=== PATIENT | male | born 1990 | race Caucasian/White ===

== ENCOUNTER 2022-07-30 08:57 | Emergency (ER) | payer OTHER, SELFPAY ==
--- NOTE | 2022-07-30 09:01 | ED.URI ---
HPI - URI/Sore Throat General Chief Complaint: Upper Respiratory Infection Stated Complaint: cold flu Time Seen by Provider: 07/30/22 09:01 Source: patient and RN notes reviewed History of Present Illness HPI Narrative: patient is a 32-year-old male who presents to urgent care with his spouse with complaints of flu-like symptoms of cough and fever, fatigue for the last 3 days. Patient has been taking ibuprofen, NyQuil and DayQuil. Patient has been eating without any nausea or vomiting. Patient states that he is diabetic and his blood sugar levels have been within normal limits. No other acute complaints. Other than extreme fatigue, no acute distress noted. Patient aware of the plan of care. Some parts of this dictation were generated by voice recognition software and may contain typographical and/or grammatical inaccuracies. Related Data Home Medications Medication Instructions Recorded Confirmed amlodipine 5 mg tablet 5 mg PO DAILY 07/30/22 07/30/22 dextroamphetamine-amphetamine ER 20 mg PO DAILY 07/30/22 07/30/22 20 mg 24hr capsule,extend release (Adderall XR) insulin glargine 100 unit/mL (3 25 unit subcut QHS 07/30/22 07/30/22 mL) subcutaneous pen (Lantus Solostar U-100 Insulin) semaglutide 0.25 mg or 0.5 mg (2 0.25 mg subcut WEEKLY 07/30/22 07/30/22 mg/1.5 mL) subcutaneous pen injector (Ozempic) Allergies Allergy/AdvReac Type Severity Reaction Status Date / Time Sulfa (Sulfonamide Allergy Mild Hives Verified 07/30/22 09:19 Antibiotics) Review of Systems Review of Systems: CONSTITUTIONAL: Reports of chills, sweats, fever EYES: Denies visual changes, redness, or discharge. ENT: reports rhinorrhea and postnasal drainage CARDIOVASCULAR: Denies chest pain, palpitations, or edema. RESPIRATORY: reports of cough without dyspnea GASTROINTESTINAL: Denies abdominal pain, nausea, vomiting, or diarrhea. GENITOURINARY: Denies dysuria or hematuria. SKIN: Denies rash or itching. MUSCULOSKELETAL: Denies back pain, joint pain. reports body aches NEUROLOGIC: Denies headache, numbness, or weakness. All other systems reviewed are negative, except as documented in HPI. PMFSH Comments At the time of my signature, I reviewed and agree with the nursing past medical, surgical, social, and family history. There is no relevant family history pertinent to the patient complaint. Exam Narrative: GENERAL: This is a well-nourished, well-developed patient, appears fatigued HEAD: normocephalic, atraumatic. EYES: PERRL. Sclera clear/white. Vision is grossly intact. EARS: External ears normal, auditory canals clear and without drainage, TMs normal without perforation. Hearing grossly intact. NOSE: External nose normal with no obvious nasal discharge, nares without redness, clear rhinorrhea. THROAT: Mucous membranes moist, Mild erythema to posterior pharynx with moderate postnasal drainage NECK: Neck supple, non-tender without lymphadenopathy CARDIOVASCULAR: Regular rate and rhythm without murmurs, gallops, or rubs. RESPIRATORY: Clear to auscultation. Breath sounds equal bilaterally. No wheezes, rales, or rhonchi. GASTROINTESTINAL: Abdomen soft, non-tender, nondistended. Bowel sounds are active. No hepato-splenomegaly, or palpable masses. No guarding. SKIN: pale. warm, intact with no suspicious lesions or rash, good texture and turgor. NEURO: awake, alert, and oriented to person, place and time. There were no obvious focal neurologic abnormalities. EXTREMITIES: No clubbing, cyanosis, or edema. Course Course Level of Care: Express Care Visit Vital Signs Vital signs: Vital Signs Temperature 97.5 F L 07/30/22 09:04 Pulse Rate 106 H 07/30/22 09:04 Respiratory Rate 20 07/30/22 09:04 Blood Pressure 81/50 L 07/30/22 09:04 Pulse Oximetry 97 07/30/22 09:04 Oxygen Delivery Room Air 07/30/22 09:04 Temperature 97.5 F L 07/30/22 09:04 Pulse Rate 106 H 07/30/22 09:04 Respiratory Rate 20 1
[2022-07-30 09:04] VITALS: BP 81/50; PULSE 106; RESP 20; TEMP 36.4; O2SAT 97
[2022-07-30 09:24] VITALS: BP 101/62
== END 2022-07-30 09:35 | disposition home or self-care (01) ==
PROVIDERS: Emergency Provider Nurse Practitioner Family; PCP Family Medicine
DX: R05.9 Cough, unspecified (principal); R50.9 Fever, unspecified; R53.83 Other fatigue; E11.9 Type 2 diabetes mellitus without complications; Z79.4 Long term (current) use of insulin
CPT/HCPCS: 99211; G0463

== ENCOUNTER 2022-08-21 13:10 | Emergency (ER) | payer BC, SELFPAY ==
--- NOTE | ~2022-08-21 | XR_ITS ---
EXAMINATION: XR chest 2V 08/21/2022 13:33 INDICATION: Cough and fever. Diabetes. PROCEDURE: 2 view chest COMPARISON: No prior studies for comparison. FINDINGS: The lungs are clear. The cardiomediastinal silhouette is within normal limits. There are no pleural effusions. There is no pneumothorax suspected. IMPRESSION: 1: NO ACUTE CARDIOPULMONARY DISEASE. Reviewed, dictated and finalized at location A. OMER SERVICE SALES ASSOCIATE
[2022-08-21 13:18] VITALS: BP 148/82; PULSE 120; RESP 20; TEMP 36.7; O2SAT 96
--- NOTE | 2022-08-21 13:38 | ED.GENADULT ---
HPI - General Adult General Chief complaint: Upper Respiratory Infection Stated complaint: cough,fever,drainage Source: patient Mode of arrival: ambulatory Limitations: no limitations History of Present Illness HPI narrative: Patient presents for evaluation of respiratory symptoms since Tuesday. He reports sinus congestion, productive cough of green sputum, exertional dyspnea, and sore throat. He believes he had a fever but did not check his temperature. He has had some episodes of vomiting that he attributes to the severity of his coughing episodes. No diarrhea. He was taking DayQuil and NyQuil for his symptoms. Today he switched to Mucinex and that seems to be working. His is here being evaluated for similar symptoms. He believes he had influenza in the middle of July 2022 but did not actually take a test. He had COVID back in 2018. He does not smoke. He is diabetic. He has a freestyle a states that his blood sugars run in the 120's at home. Related Data Home Medications Medication Instructions Recorded Confirmed amlodipine 5 mg tablet 5 mg PO DAILY 07/30/22 08/21/22 dextroamphetamine-amphetamine ER 20 mg PO DAILY 07/30/22 08/21/22 20 mg 24hr capsule,extend release (Adderall XR) divalproex 250 mg tablet,extended 500 mg PO BID 07/30/22 08/21/22 release 24 hr glimepiride 2 mg tablet 2 mg PO DAILY 07/30/22 08/21/22 insulin glargine 100 unit/mL (3 25 unit subcut QHS 07/30/22 08/21/22 mL) subcutaneous pen (Lantus Solostar U-100 Insulin) losartan 100 1 tablet PO DAILY 07/30/22 08/21/22 mg-hydrochlorothiazide 12.5 mg tablet metformin 500 mg tablet,extended 500 mg PO BID 07/30/22 08/21/22 release 24 hr pravastatin 20 mg tablet 20 mg PO DAILY 07/30/22 08/21/22 semaglutide 0.25 mg or 0.5 mg (2 0.25 mg subcut WEEKLY 07/30/22 07/30/22 mg/1.5 mL) subcutaneous pen injector (Ozempic) Allergies Allergy/AdvReac Type Severity Reaction Status Date / Time Sulfa (Sulfonamide Allergy Mild Hives Verified 08/21/22 13:21 Antibiotics) Review of Systems Review of Systems: CONSTITUTIONAL: Denies fever, chills, or sweats. EYES: Denies visual changes, redness, or discharge. ENT: Reports sinus congestion, drainage, sore throat. CARDIOVASCULAR: Denies chest pain, palpitations, or edema. RESPIRATORY: Reports productive cough of green sputum and shortness of breath. GASTROINTESTINAL: Reports episodes of vomiting during coughing episodes. Denies vomiting otherwise. Denies abdominal pain, nausea, or diarrhea. GENITOURINARY: Denies dysuria or hematuria. SKIN: Denies rash or itching. MUSCULOSKELETAL: Denies back pain, joint pain, or myalgia. NEUROLOGIC: Denies headache, numbness, dizziness, or weakness. PSYCHIATRIC: Denies anxiety or depression. [facility] Past Medical History Medical History (Updated 08/21/22 @ 14:38 by Gualberto Siu, QAMAR, ) Diabetes Surgical History Surgical History No pertinent past surgical history Family History Family History Mother Family history non-contributory Social History Social History Substance use: never Gender identity (if verbalized by the patient): Male Sexual Orientation (if Verbalized by the Patient): Straight or Heterosexual Spiritual care concerns: No Exam Narrative: GENERAL: Well-appearing, well-nourished, and in no acute distress. HEAD: Normocephalic, atraumatic. EYES: PERRLA and EOMI. ENT: Nares clear, no rhinorrhea or epistaxis. Mucous membranes moist. There is posterior pharyngeal erythema without exudate. Uvula is midline. There is bilateral tympanic membrane erythema and scarring noted NECK: Supple. No adenopathy or masses. No carotid bruits or JVD CHEST: Clear to auscultation. Cough present on exam. No respiratory distress. No wheezes rales or
== END 2022-08-21 14:40 | disposition home or self-care (01) ==
PROVIDERS: Emergency Provider Nurse Practitioner; PCP Family Medicine
DX: J01.90 Acute sinusitis, unspecified (principal); B96.89 Other specified bacterial agents as the cause of diseases classified elsewhere
CPT/HCPCS: 71046; 87426; 87804; 99213; C9803; G0463

== ENCOUNTER 2022-08-31 08:49 | Outpatient (CLI) | payer BC, SELFPAY ==
[2022-08-31 20:28] LABS: Alanine Aminotransferase 47 U/L (6-50); Albumin Level 4.5 g/dL (3.5-5.1); Alkaline Phosphatase 71 U/L (38-126); Anion Gap 6 mmol/L (8-16); Aspartate Amino Transferase 47 U/L (17-59); Bilirubin,Total 0.3 mg/dL (0.2-1.3); Blood Urea Nitrogen 13 mg/dL (9-20); Calcium 9.5 mg/dL (8.4-10.2); Carbon Dioxide 31 mmol/L (22-30); Chloride 99 mmol/L (98-107); Cholesterol 120 mg/dL (0-200); Estimated Glomerular Filt Rate > 60; Glucose 111 mg/dL (65-110); HDL Direct 27 mg/dL; Hematocrit 46.1 % (42.0-52.0); Hemoglobin 15.3 g/dL (14.0-18.0); Mean Corpuscular HGB Conc 33.2 g/dl (32-36); Mean Corpuscular Hemoglobin 30.4 pg (26-34); Mean Corpuscular Volume 91.5 fl (80-100); Mean Platelet Volume 10.2 fl (7.4-10.4); Platelet Count Result 316 k/mm3 (150-375); Potassium 4.3 mmol/L (3.4-5.0); Red Blood Count 5.04 M/mm3 (4.6-6.20); Red Cell Distribution Width 12.6 % (11.5-14.5); Sodium 136 mmol/L (137-145); Triglycerides 189 mg/dL (<150); White Blood Count 8.5 K/mm3 (4.5-10.0)
[2022-08-31 20:58] LABS: LDL Cholesterol Direct 69 mg/dL
== END 2022-08-31 08:50 | disposition home or self-care (01) ==
PROVIDERS: PCP Family Medicine; Visit Provider Family Medicine
DX: Z00.00 Encounter for general adult medical examination without abnormal findings (principal); T78.40XA Allergy, unspecified, initial encounter; R56.9 Unspecified convulsions; J45.909 Unspecified asthma, uncomplicated; E66.9 Obesity, unspecified; E11.9 Type 2 diabetes mellitus without complications
CPT/HCPCS: 36415; 80053; 80061; 85027

== ENCOUNTER 2024-09-19 06:39 | Outpatient (CLI) | payer OTHER, SELFPAY ==
--- OUTSIDE RECORDS SUMMARY | 2024-09-19 06:42 | XMS_ITS | Referral Summary ---
Author Organization [facility] Physician Office Building [id number] [place] [id number] Care Team Providers Care Manager Client Support Name Role Phone Cruz Le MD Unavailable [phone] Marie Guevara NP Primary Care Provider [phone] Encounters Date Type Department Care Team Description 06/25/2024 9:15 AM POT PUSHER Office [place] [facility] [place] [facility] [id number] [place] [address] [address] [address] Wilman Brown II, MD Generalized idiopathic epilepsy and epileptic syndromes, intractable, without status epilepticus (HCC) (Primary Dx); 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 (CMS/HCC) (HCC) from Last 3 Months Allergies Active Allergy Reactions Criticality Noted Date Comments Sulfa (Sulfonamide Antibiotics) Sulfanilamide Other (See comments) Reaction: Unknown, , Medications fexofenadine (MENDEL) 180 mg tablet Take 1 tablet (180 mg total) by mouth daily Active insulin glargine (LANTUS,BASAGLA R) 100 unit/mL (3 mL) insulin pen Inject 40 Units under the skin nightly 36 mL 3 08/19/19 21 Active Additional Information Patient taking differently: 25 Unitssubcutaneous Nightly, Reported on 08/10/2022 BD Romi 2nd Gen Pen Needle 32 gauge x 5/32 needle USE TWICE DAILY DIRECTED 200 each 04/14/20 21 Active amLODIPine (NORVASC) 5 mg tablet Take 1 tablet (5 mg total) by mouth daily 30 tablet 5 04/21/20 21 Active pravastatin (PRAVACHOL) 20 mg tablet 06/25/20 21 Active losartan-hydroC HLOROthiazide (HYZAAR) 100-12.5 mg per tablet TAKE 1 TABLET BY MOUTH EVERY MORNING 30 tablet 08/21/19 22 Active Adderall XR 20 mg 24 hr capsule 06/14/20 22 Active FreeStyle Bud 2 Sensor kit 05/10/20 22 Active metFORMIN XR (GLUCOPHAGE XR) 500 mg 24 hr tablet 1 tablet (500 mg total) 2 (two) times a day after breakfast and dinner Acti ve glucagon 1 mg injection 05/09/20 23 Active Mounjaro 15 mg/0.5 mL pen injector 01/15/20 24 Active divalproex ER (DEPAKOTE ER) 250 mg 24 hr tabletIndicatio ns:Nonintractab le juvenile myoclonic epilepsy without status epilepticus (CMS/HCC) (HCC) TAKE FOUR (4) TABLETS BY MOUTH EACH EVENING 360 tablet 3 07/24/20 24 Active Active Problems Problem Noted Date Diagnosed Date Essential hypertension, benign 02/11/2021 Type 2 diabetes mellitus wit h hyperglycemia, with long-term current use of insulin 02/11/2021 Assessment & Plan (08/10/2022 3:38 PM POT PUSHER): Diagnosed in 2018 Control : tight control after weight loss A1c 5.9% on 08/10/22 Kidney: GFR 116 on 08/20/20. Plan: Check labs this week. Refer patient to dietitian. Discontinue Glimepiride. Increase Ozempic to 1 mg /week. Stop if having side effects like nausea with vomiting or abdominal pains. Continue Lantus and Metformin Monitor sugars 4 x per day- CGM Hypoglycemia symptoms and treatment reviewed with patient. Call if having low sugars. Ophthalmology exam on regular basis. 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 (11/20/2016): Generalized convulsive epilepsy Immunizations Name Administration Dates Next Due Hep A, Pediatric 02/01/2007 Influenza, Split 06/27/2006,06/08/2005, 4 Influenza, Trivalent, IM (MDV) 05/24/2009 Meningococcal MCV4P (Menactra) 02/03/2005 Social History Tobacco Use Types Packs/Day Years Used Date Smoking Tobacco: Former Smokeless Tobacco: Never Tobacco Cessation:Counseling Given: Not Answered Alcohol Use Standard Drinks/Week Comments Yes 0 (1 standard drink = 0.6 oz pur e alcohol) Sex and Gender Information Value Date Recorded Sex Assigned at Not on file Legal Sex Male 11:44 AM POT PUSHER Gender Identity Male 09/22/2020 11:17 PM POT PUSHER Sexual Orientation Straight 09/22/2020 11 :17 PM POT PUSHER Last Filed Vital Signs Vital Sign Reading Time Taken Comments Blood Pressure 110/70 06/25/2024 9:22 AM POT PUSHER Pulse 87 06/25/2024 9:22 AM POT PUSHER Temperature 37 ??C (98.6 ??F) 08/20/2020 4:31 PM POT PUSHER Respiratory Rate 18 06/25/2024 9:22 AM POT PUSHER Oxygen Saturation 94% 06/25/2024 9:22 AM POT PUSHER Inhaled Oxygen Concentration - - Weight 142.9 kg (315 lb) 06/25/2024 9:22 AM POT PUSHER Height 180.3 cm (5' 11 ) 07/05/2023 9:46 AM POT PUSHER Body Mass Index 43.93 07/05/2023 9:46 AM POT PUSHER Plan of Treatment Not on file Procedures Procedure Name Priority Date/Time Associated Diagnosis Comments EGFR Routine 06/27/2023 10:09 AM POT PUSHER 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 73 m2 [facility] ([place]) Comment: Interpretive Data Reference Interval Normal ?>/= 90 mL/min/1.73m2 Mildly decreased* ? 60 - 89 mL/min/1.73m2 Mildly to moderately decreased ?45 - 59 mL/min/1.73m2 Moderately to severely decreased ??30 - 44 mL/min/1.73m2 Severely decreased ?15 - 29 mL/min/1.73m2 Kidney Failure ?< 15 ??mL/min/1.73m2 *Relative to young adult level Estimated glomerular filtration rate is determined by the 2020 CKD-EPI equation recommended by the National Kidney Foundation (A Unifying Approach to GFR Estimation: Recommendations of the NKF-ASK Task Force on Reassessing the Inclusion of Race in Diagnosing Kidney Disease, JASN 2020). The CKD-EPI equation should not be used for patients with unstable renal function and has not been validated in children and those over 70. Current interpretive data was last reviewed 2021. Blood 06/27/2023 10:0 9 AM POT PUSHER 06/27/2023 11:20 AM POT PUSHER Wilman Brown II, MD LAB BLOOD ORDERABLES Final R esult MICHELLE [facility] ([place]) 1 [facility] Department of Laboratories [place], [place] [id number] * POCT hemoglobin A1c (08/10/2022 3:07 PM POT PUSHER) Pathologist [facility] Hemoglobin A1C, POC 5.9 Blood 08/10/2022 3:07 PM POT PUSHER Ezra Weinstein MD POINT OF CARE TEST ORDERABLES Final Result * POCT lipid panel (02/11/2021 2:58 PM CDT) Cholesterol, POC N/A mg/dL HDL, POC 23 mg/dL Triglycerides, POC 285 mg/dL LDL Cholesterol POC 90 mg/dL Chol/HDL Ratio, POC 7.3 Non-HDL Cholesterol, POC 148 mg/dL Cholesterol Total, POC 171 mg/dL Capillary blood 02/11/2021 2 :58 PM CDT Cruz Le MD POINT OF CARE TEST ORDERABLES Final Result from Last 3 Months or Most Recently Relevant to Health Maintenance Insurance [facility] PREFERRED [place] CHOICE PLUS Advance Directives For more information, please contact: [phone] Documents on File Type Date Recorded Patient Pharmaceutical Operator Expl anation ADVANCE DIRECTIVE 03/23/2017 2:33 PM Care Teams Manager Client Support Relationship Specialty Start Date End Date Marie Guevara NP [facility] [place] [address] PCP - General Nurse Practitioner 06/17/22 Cruz Le MD [address] [facility] [address] [place] [address] 01/24/15
--- OUTSIDE RECORDS SUMMARY | 2024-09-19 06:42 | XMS_ITS | Clinical Summary ---
Author Organization [facility] Physician Office Building [address] [place] [id number] Care Team Providers Care Shrub Grower Name Role Phone Cruz Le MD Unavailable [phone] Marie Guevara NP Primary Care Provider [phone] Allergies Active Allergy Reactions Criticality Noted Date [...] 02/11/2021 Assessment & Plan (08/10/2022 3:38 PM CENTRIFUGAL CHILLER TECHNICIAN): Diagnosed in 2018 Control : tight control [...] epilepsy 07/30/2014 Overview (11/20/2016): Generalized convulsive epilepsy Encounters Date Type Department Care Team Description 06/25/2024 9:15 AM CENTRIFUGAL CHILLER TECHNICIAN [place] [facility] [place] [facility] [address] [address] Wilman Brown II, MD Generalized idiopathic epilepsy and epileptic syndromes, intractable, without status epilepticus (HCC) (Primary Dx); 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 (CMS/HCC) (HCC) from Last 3 Months Immunizations Name Administration Dates Next Due Hep A, Pediatric 02/01/2007 Influenza, Split 06/27/2006,06/08/2005, 4 Influenza, Trivalent, IM (MDV) 05/24/2009 Meningococcal MCV4P (Menactra) 02/03/2005 Medical History Medical History Date Comments Attention deficit disorder ADHD Epilepsy (HCC) Epilepsy Asthma Asthma Hx Other Medical ADD/ADHD Seizure disorder (CMS/HCC) (HCC) Seizure disorder Hx Other Medical Fracture, upper limb Fracture of lower extremity Frac ture, lower limb Diabetes mellitus (HCC) type 1 Family History Medical History Relation Name Comments Melanoma Mother Relation Name Status Comments Father Alive Mother Alive Social History Tobacco Use Types Packs/Day Years Used Date Smoking Tobacco: Former Smokeless Tobacco: Never Tobacco Cessation:Counseling Given: Not Answered Alcohol Use Standard Drinks/Week Comments Yes 0 (1 standard drink = 0.6 oz pur e alcohol) Sex and Gender Information Value Date Recorded Sex Assigned at Not on file Legal Sex Male 11:44 AM CENTRIFUGAL CHILLER TECHNICIAN Gender Identity Male 09/22/2020 11:17 PM CENTRIFUGAL CHILLER TECHNICIAN Sexual Orientation Straight 09/22/2020 11 :17 PM CENTRIFUGAL CHILLER TECHNICIAN Obstetrics History Last Filed Vital Signs Vital Sign Reading Time Taken Comments Blood Pressure 110/70 06/25/2024 9:22 AM CENTRIFUGAL CHILLER TECHNICIAN Pulse 87 06/25/2024 9:22 AM CENTRIFUGAL CHILLER TECHNICIAN Temperature 37 ??C (98.6 ??F) 08/20/2020 4:31 PM CENTRIFUGAL CHILLER TECHNICIAN Respiratory Rate 18 06/25/2024 9:22 AM CENTRIFUGAL CHILLER TECHNICIAN Oxygen Saturation 94% 06/25/2024 9:22 AM CENTRIFUGAL CHILLER TECHNICIAN Inhaled Oxygen Concentration - - Weight 142.9 kg (315 lb) 06/25/2024 9:22 AM CENTRIFUGAL CHILLER TECHNICIAN Height 180.3 cm (5' 11 ) 07/05/2023 9:46 AM CENTRIFUGAL CHILLER TECHNICIAN Body Mass Index 43.93 07/05/2023 9:46 AM CENTRIFUGAL CHILLER TECHNICIAN Plan of Treatment Health Maintenance Due Date Last Done Comments Albumin Creatinine Ratio, Urine 1990 Depression Screening 1990 Hepatitis C Screening 1990 Dilated Eye Exam 1990 Pneumococcal vaccine <65 (1 of 2 - PCV) 1996 DTaP/Tdap/Td Vaccine (1 - Tdap) 2001 Varicella Vaccines (1 of 2 - 13+ 2-dose series) 2003 Hepatitis B Screening 2008 Regular Well Visit/Exam 18-64 2008 Lipid Panel 02/11/2022 02/11/2021 Hemoglobin A1C 02/08/2023 08/10/2022, 06/3 , 11/12/2020, Additional history exists Foot Exam 08/10/2023 08/10/2022 Influenza Vaccine (#1) 2024 10200 9, 06/27/2006, 06/08/2005, Additional history exists eGFR 06/27/2024 06/27/2023, 0 01/2021, 07/07/2020, Additional history exists HPV Vaccines Aged Out No longer eligi ble based on patient's age to complete this topic Procedures Procedure Name Priority Date/Time Associated Diagnosis Comments EGFR Routine 06/27/2023 10:09 AM CENTRIFUGAL CHILLER TECHNICIAN 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) Mixed hyperlipidemia from Last 3 Months or Most Recently Relevant to Health Maintenance Results * eGFR (06/27/2023 10:09 AM CENTRIFUGAL CHILLER TECHNICIAN) eGFR 121 mL/min/1. 73 m2 [facility] ([place]) Comment: Interpretive Data Reference Interval Normal [...] reviewed 2021. Blood 06/27/2023 10:0 9 AM CENTRIFUGAL CHILLER TECHNICIAN 06/27/2023 11:20 AM CENTRIFUGAL CHILLER TECHNICIAN Wilman Brown II, MD LAB BLOOD ORDERABLES Final R esult Performing Organization Address City/State/[facility] Co de Phone Number [facility] 1 [facility] Department of Laboratories [place], [place] [phone] * POCT hemoglobin A1c (08/10/2022 3:07 PM CENTRIFUGAL CHILLER TECHNICIAN) Hemoglobin A1C, POC 5.9 Blood 08/10/2022 3:07 PM CENTRIFUGAL CHILLER TECHNICIAN us Ezra Weinstein MD POINT OF CARE TEST [...] Most Recently Relevant to Health Maintenance Insurance [facility]ED [facility] CHOICE PLUS Advance Directives For more information, please contact: [phone] Documents on File Type Date Recorded Patient Sticker Operator Expl anation ADVANCE DIRECTIVE 03/23/2017 2:33 PM Care Teams Shrub Grower Relationship Specialty Start Date End Date Marie Guevara NP [facility] [place] [address] PCP - General Nurse Practitioner 06/17/22 Cruz Le MD [address] [address] 01/24/15
[2024-09-19 18:41] LABS: MALB Creatinine Ratio 8.9 mg/g (0-30)
[2024-09-19 19:06] LABS: Alanine Aminotransferase 49 U/L (6-50); Albumin Level 4.4 g/dL (3.5-5.1); Alkaline Phosphatase 68 U/L (38-126); Anion Gap 11 mmol/L (4-12); Aspartate Amino Transferase 62 U/L (17-59); Bilirubin,Total 0.6 mg/dL (0.2-1.3); Blood Urea Nitrogen 17 mg/dL (9-20); Calcium 9.5 mg/dL (8.4-10.2); Carbon Dioxide 30 mmol/L (22-30); Chloride 99 mmol/L (98-107); Cholesterol 113 mg/dL (0-200); Estimated Glomerular Filt Rate > 60; Glucose 110 mg/dL (65-110); HDL Direct 26 mg/dL; Potassium 4.4 mmol/L (3.4-5.0); Sodium 140 mmol/L (137-145); Triglycerides 186 mg/dL (<150)
[2024-09-19 19:16] LABS: LDL Cholesterol Direct 62 mg/dL
[2024-09-19 19:29] LABS: Hemoglobin A1C 5.9 % (<5.7)
== END 2024-09-19 06:40 | disposition home or self-care (01) ==
LOC: ANHBWCLAB 06:40
PROVIDERS: PCP Nurse Practitioner Adult Health; Visit Provider Nurse Practitioner Adult Health
DX: E11.9 Type 2 diabetes mellitus without complications (principal)
CPT/HCPCS: 36415; 80053; 80061; 82043; 82565; 83036

== ENCOUNTER 2025-08-05 09:57 | Outpatient (CLI) | payer OTHER, SELFPAY ==
--- NOTE | ~2025-08-05 | MR_ITS ---
EXAMINATION: MR lumbar spine wo con DATE: 08/05/2025 10:25 INDICATION: Low back pain, unspecified. TECHNIQUE: Magnetic resonance imaging (MRI) of the lumbar spine was performed without intravenous contrast. COMPARISON: None FINDINGS: Bone alignment is normal. There are Schmorl's nodes at many levels. There is mild chronic anterior wedging of T12 and L1 vertebral bodies. There is mildly decreased disc height at L5-S1. The distal spinal cord signal intensity is normal. The conus medullaris is at T12-L1. The following disc levels are specifically discussed: L1-L2: The disc does not extend beyond the endplate margin. There is mild bilateral facet joint osteoarthritis. There is no neural foraminal stenosis. There is no central canal stenosis. L2-L3: The disc does not extend beyond the endplate margin. There is mild bilateral facet joint osteoarthritis. There is no neural foraminal stenosis. There is no central canal stenosis. L3-L4: The disc does not extend beyond the endplate margin. There is moderate bilateral facet joint osteoarthritis. There is no neural foraminal stenosis. There is no central canal stenosis. L4-L5: The disc does not extend beyond the endplate margin. There is moderate bilateral facet joint osteoarthritis. There is no neural foraminal stenosis. There is no central canal stenosis. L5-S1: There is a left central extrusion with mass effect on left S1 nerve root in left lateral recess. There is severe bilateral facet joint osteoarthritis. There is mild bilateral neural foraminal stenosis. There is mild central canal stenosis at the midline. There is moderate stenosis of left lateral recess. IMPRESSION: 1. Extrusion at L5-S1 with mass effect on left S1 nerve root. Otherwise mild lumbar spondylosis. Reviewed, dictated and finalized at location E. EATION MANAGER IMPRESSION: 1. Extrusion at L5-S1 with mass effect on left S1 nerve root. Otherwise mild ramirez mbar spondylosis.
== END 2025-08-05 09:58 | disposition home or self-care (01) ==
PROVIDERS: PCP Nurse Practitioner Adult Health; Visit Provider Nurse Practitioner Adult Health
DX: M51.27 Other intervertebral disc displacement, lumbosacral region (principal); M47.896 Other spondylosis, lumbar region
CPT/HCPCS: 72148